=== PATIENT | female | born 1995 | race Two or more races ===

== ENCOUNTER 2022-02-06 00:52 | Emergency (ER) | payer OTHER ==
[~2022-02-06] VITALS: Ht 160 cm; Wt 50.8 kg
[2022-02-06] MEDS ORDERED: VYVANSE30 MG (01:42)
[2022-02-06] MEDS ORDERED: AVIANE-28 TABL1 EACH PO (01:42)
== END 2022-02-06 02:55 | disposition home or self-care (01) ==
LOC: ER 00:52
DX: S61.412A Laceration without foreign body of left hand, initial encounter (principal); W25.XXXA Contact with sharp glass, initial encounter; Y93.G1 Activity, food preparation and clean up; Y92.89 Other specified places as the place of occurrence of the external cause; Y99.9 Unspecified external cause status